=== PATIENT | female | born 1935 | race African-American/Black ===

== ENCOUNTER 2017-01-31 09:27 | Inpatient (IN) | payer OTHER, MEDICAID ==
[~2017-01-31] VITALS: Ht 165.1 cm; Wt 66.0 kg
[2017-01-31] MEDS ORDERED: DONE5TAB28 PO (10:11)
[2017-01-31] MEDS ORDERED: SODIUM CHLORIDE 0.9% 250 ML IV ONE (10:11)
[2017-01-31] MEDS ORDERED: LIOT5TAB PO (10:12)
[2017-01-31] MEDS ORDERED: ATOR10TA52 PO (10:12)
[2017-01-31] MEDS ORDERED: MEMA28CA PO (10:14)
[2017-01-31] MEDS ORDERED: LEVO50TA7 PO (10:14)
[2017-01-31] MEDS ORDERED: ALPR0.254 PO (10:14)
[2017-01-31] MEDS ORDERED: PANT40T PO (10:15)
[2017-01-31] MEDS ORDERED: LORA-154 PO (10:15)
[2017-01-31 12:06] LABS: DEFINITIVE VIEW TRANSMISSION; Hematocrit 37.5 % (36.0-46.0); Hemoglobin 12.6 g/dL (12.2-16.2); Mean Corpuscular Hemoglobin 23.4 pg (28.0-32.0); Mean Corpuscular Hgb Conc. 33.5 g/dL (32.0-36.0); Mean Corpuscular Volume 69.7 fL (80.0-100.0); Mean Platelet Volume 9.7 fL (7.4-10.4); Platelet Count (auto) 205 10^3/uL (140-450); SUSPECT VIEW TRANSMISSION; White Blood Cell 4.7 10^3/uL (4.4-10.8)
[2017-01-31 12:13] LABS: Metamyelocytes % 0; Myelocytes % 0; Promyelocytes % 0; Reactive Lymphocytes 0
[2017-01-31 12:16] LABS: Albumin 3.3 g/dL (3.4-5.0); BUN/Creatinine Ratio 20.8; Bilirubin, Total 0.2 mg/dL (0.2-1.0); Calcium 9.7 mg/dL (8.5-10.1); Magnesium 2.2 mg/dL (1.6-2.6); Total Protein 7.1 g/dL (6.4-8.2)
[2017-01-31 13:34] LABS: Hypochromia Moderate; Platelet Estimate Adequate
[2017-01-31 13:35] LABS: Platelet Clumps FEW
[2017-01-31 13:39] LABS: Urine RBC None Seen /hpf (0 - 4)
[2017-01-31 13:50] LABS: Urine Bilirubin Negative (Negative); Urine Blood Negative /uL (Negative); Urine Color Yellow (Yellow); Urine Glucose Normal (Normal); Urine Ketone Negative (Negative); Urine Nitrite Negative (Negative); Urine Squamous Epithelial Cell FEW /hpf (<5); Urine Urobilinogen Normal (Negative)
[2017-01-31] MEDS ORDERED: ALPRAZolam 0.25 MG TAB PO PRN (16:00)
[2017-01-31] MEDS ORDERED: ONDANSETRON HCL 4 MG/2 ML VIAL IV PRN (16:00)
[2017-01-31] MEDS ORDERED: HYDROcodone-ACET 5/325MG TAB PO PRN (16:00)
[2017-01-31] MEDS ORDERED: DOCUSATE SOD 100 MG CAP PO PRN (16:00)
[2017-01-31] MEDS ORDERED: TEMAZEPAM 15 MG CAP PO PRN (16:00)
[2017-01-31] MEDS ORDERED: NITROGLYCERIN 0.4 MG SL TAB SL PRN (16:00)
[2017-01-31] MEDS ORDERED: MORPHINE SULF INJ 2 MG/ML SYRINGE 1ML IV PRN ×2 (16:00)
[2017-01-31] MEDS ORDERED: ACETAMINOPHEN 325 MG TAB PO PRN (16:00)
[2017-01-31] MEDS ORDERED: cefTRIAXone 1GM/50ML D5W 50 ML IV ONE (16:15)
[2017-01-31] MEDS: FAMOTIDINE 20 MG TAB PO SCH (16:30)
[2017-01-31 18:31] VITALS: BP 136/64
[2017-01-31] MEDS ORDERED: ASPirin-EC 81 mg tab PO ONE (19:45)
[2017-01-31 20:00] VITALS: BP 142/58
[2017-01-31] MEDS: ATORVASTATIN 20 MG TAB PO SCH (21:12)
[2017-01-31] MEDS: DONEPEZIL HYDROCHLORIDE 5 MG TAB PO SCH (21:12)
[2017-01-31 22:00] VITALS: BP 142/58
[2017-01-31] MEDS: SODIUM CHLOR 0.9% PF (SALINE LOCK) 10ML VIAL IV SCH (22:00)
[2017-02-01 05:00] VITALS: BP 136/84
[2017-02-01 06:07] LABS: Basophils # (auto) 0 uL; Basophils % (auto) 0.6 % (0.0-2.0); DEFINITIVE VIEW TRANSMISSION; Eosinophils # (auto) 0 uL; Eosinophils % (auto) 0.7 % (0.0-7.0); Hemoglobin 12.3 g/dL (12.2-16.2); Lymphocytes # (auto) 1.1 uL; Lymphocytes % (auto) 31.1 % (10.0-50.0); Mean Corpuscular Hemoglobin 24.3 pg (28.0-32.0); Mean Corpuscular Hgb Conc. 33.2 g/dL (32.0-36.0); Mean Corpuscular Volume 73.1 fL (80.0-100.0); Mean Platelet Volume 9.7 fL (7.4-10.4); Monocytes # (auto) 0.6 uL; Monocytes % (auto) 16.1 % (0.0-12.0); Neutrophils # (auto) 1.9 uL; Neutrophils % (auto) 51.5 % (37.0-80.0); Platelet Count (auto) 206 10^3/uL (140-450); Red Cell Distribution Width 16.5 % (11.6-16.0); White Blood Cell 3.7 10^3/uL (4.4-10.8)
[2017-02-01 06:16] LABS: Albumin 3.1 g/dL (3.4-5.0); BUN/Creatinine Ratio 20.8; Calcium 8.9 mg/dL (8.5-10.1); Potassium 3.8 mmol/L (3.5-5.1)
[2017-02-01] MEDS: LEVOTHYROXINE SODIUM 50 MCG TAB PO SCH (06:16)
[2017-02-01] MEDS: LIOTHYRONINE 5 MCG PO SCH (06:17)
[2017-02-01] MEDS: SODIUM CHLOR 0.9% PF (SALINE LOCK) 10ML VIAL IV SCH ×3 (06:17→21:06)
[2017-02-01 06:20] LABS: Bilirubin, Total 0.4 mg/dL (0.2-1.0); Total Protein 6.5 g/dL (6.4-8.2)
[2017-02-01 08:00] VITALS: BP 136/84
[2017-02-01] MEDS: cefTRIAXone 1GM/50ML D5W 50 ML IV SCH (08:22)
[2017-02-01] MEDS: BOOST PLUS 8 ounce PO SCH ×3 (08:23→17:09)
[2017-02-01 09:00] VITALS: BP 140/68
[2017-02-01] MEDS: MEMANTINE HCL 5 MG TAB PO SCH (09:32)
[2017-02-01] MEDS: FAMOTIDINE 20 MG TAB PO SCH (09:32)
[2017-02-01] MEDS: PANTOPRAZOLE 40 MG TAB PO SCH (09:32)
[2017-02-01] MEDS: ASPirin-EC 81 mg tab PO SCH (09:32)
[2017-02-01] MEDS ORDERED: ENOXAPARIN SOD 30 MG/0.3 ML SYRINGE SC SCH (10:00)
[2017-02-01] MEDS ORDERED: MULTIPLE VITAMIN TAB PO SCH (10:00)
[2017-02-01] MEDS ORDERED: LORATADINE 10 MG TAB PO SCH (10:00)
[2017-02-01 13:00] VITALS: BP 126/55
[2017-02-01] MEDS: THIAMINE INJ 100 MG, MULTIPLE VITAMIN 10 ML, FOLIC ACID 1 MG, MAGNESIUM SULF SDV 50% 8 ... IV SCH ×5 (14:57)
[2017-02-01 17:00] VITALS: BP 136/64
[2017-02-01] MEDS: DONEPEZIL HYDROCHLORIDE 5 MG TAB PO SCH (21:06)
[2017-02-01] MEDS: ATORVASTATIN 20 MG TAB PO SCH (21:06)
[2017-02-01 22:00] VITALS: BP 117/92
[2017-02-02] VITALS (8 sets, daily range): BP systolic 102–131; BP diastolic 53–65
[2017-02-02] MEDS: SODIUM CHLOR 0.9% PF (SALINE LOCK) 10ML VIAL IV SCH ×3 (06:01→21:56)
[2017-02-02] MEDS: LIOTHYRONINE 5 MCG PO SCH (06:22)
[2017-02-02] MEDS: LEVOTHYROXINE SODIUM 50 MCG TAB PO SCH (06:24)
[2017-02-02] MEDS: BOOST PLUS 8 ounce PO SCH ×3 (07:11→17:37)
[2017-02-02] MEDS: cefTRIAXone 1GM/50ML D5W 50 ML IV SCH (08:20)
[2017-02-02] MEDS: PANTOPRAZOLE 40 MG TAB PO SCH (09:36)
[2017-02-02] MEDS: MEMANTINE HCL 5 MG TAB PO SCH (09:36)
[2017-02-02] MEDS: ENOXAPARIN SOD 40 MG/0.4 ML SYRINGE SC SCH (09:36)
[2017-02-02] MEDS: ASPirin-EC 81 mg tab PO SCH (09:36)
[2017-02-02 10:43] LABS: Temperature: 23.5 C (20.0-25.0)
[2017-02-02] MEDS: THIAMINE INJ 100 MG, MULTIPLE VITAMIN 10 ML, FOLIC ACID 1 MG, MAGNESIUM SULF SDV 50% 8 ... IV SCH ×5 (11:36)
[2017-02-02] MEDS ORDERED: THIAMINE INJ 100 MG, MULTIPLE VITAMIN 10 ML, FOLIC ACID 1 MG, MAGNESIUM SULF SDV 50% 8 ... IV SCH ×5 (15:00)
[2017-02-02] MEDS: DONEPEZIL HYDROCHLORIDE 5 MG TAB PO SCH (21:56)
[2017-02-02] MEDS: ATORVASTATIN 20 MG TAB PO SCH (21:56)
[2017-02-03 05:22] VITALS: BP 127/70
[2017-02-03] MEDS: SODIUM CHLOR 0.9% PF (SALINE LOCK) 10ML VIAL IV SCH ×3 (06:13→22:05)
[2017-02-03] MEDS: LEVOTHYROXINE SODIUM 50 MCG TAB PO SCH (06:45)
[2017-02-03] MEDS: BOOST PLUS 8 ounce PO SCH ×3 (08:00→18:31)
[2017-02-03 09:00] VITALS: BP 110/73
[2017-02-03] MEDS: ENOXAPARIN SOD 40 MG/0.4 ML SYRINGE SC SCH (09:27)
[2017-02-03] MEDS: ASPirin-EC 81 mg tab PO SCH (09:27)
[2017-02-03] MEDS: MEMANTINE HCL 5 MG TAB PO SCH (09:27)
[2017-02-03] MEDS: PANTOPRAZOLE 40 MG TAB PO SCH (10:00)
[2017-02-03] MEDS: THIAMINE INJ 100 MG, MULTIPLE VITAMIN 10 ML, FOLIC ACID 1 MG, MAGNESIUM SULF SDV 50% 8 ... IV SCH ×5 (12:00)
[2017-02-03 13:00] VITALS: BP 107/68
[2017-02-03 17:00] VITALS: BP 120/63
[2017-02-03 22:00] VITALS: BP 133/69
[2017-02-03] MEDS: ATORVASTATIN 20 MG TAB PO SCH (22:05)
[2017-02-03] MEDS: DONEPEZIL HYDROCHLORIDE 5 MG TAB PO SCH (22:06)
[2017-02-04] MEDS: SODIUM CHLOR 0.9% PF (SALINE LOCK) 10ML VIAL IV SCH ×2 (05:44→14:00)
[2017-02-04 06:00] VITALS: BP 133/72
[2017-02-04] MEDS: LEVOTHYROXINE SODIUM 50 MCG TAB PO SCH (06:09)
[2017-02-04] MEDS: BOOST PLUS 8 ounce PO SCH ×2 (08:00→12:00)
[2017-02-04 09:00] VITALS: BP 140/91
[2017-02-04] MEDS: ASPirin-EC 81 mg tab PO SCH (11:20)
[2017-02-04] MEDS: PANTOPRAZOLE 40 MG TAB PO SCH (11:20)
[2017-02-04] MEDS: ENOXAPARIN SOD 40 MG/0.4 ML SYRINGE SC SCH (11:20)
[2017-02-04] MEDS: MEMANTINE HCL 5 MG TAB PO SCH (11:20)
[2017-02-04] MEDS: THIAMINE INJ 100 MG, MULTIPLE VITAMIN 10 ML, FOLIC ACID 1 MG, MAGNESIUM SULF SDV 50% 8 ... IV SCH ×5 (12:00)
[2017-02-04 13:00] VITALS: BP 107/65
== END 2017-02-04 16:10 | DRG 56 ==
LOC: ER 09:27 → EDBD 09:27 → TELE 09:28 → TELE-EAST 18:48 → EAST 02-03 14:47
PROVIDERS: ADMIT Internal Medicine; ATTEND Internal Medicine Geriatric Medicine
DX: G30.1 Alzheimer's disease with late onset (principal); G93.41 Metabolic encephalopathy; E44.1 Mild protein-calorie malnutrition; F02.80 Dementia in other diseases classified elsewhere, unspecified severity, without behavioral disturbance, psychotic disturbance, mood disturbance, and anxiety; E03.9 Hypothyroidism, unspecified; E61.1 Iron deficiency; E78.5 Hyperlipidemia, unspecified; N18.2 Chronic kidney disease, stage 2 (mild); K21.9 Gastro-esophageal reflux disease without esophagitis; R26.9 Unspecified abnormalities of gait and mobility; F29 Unspecified psychosis not due to a substance or known physiological condition; Z79.899 Other long term (current) drug therapy
CPT/HCPCS: 36415; 70450; 70551; 71010; 80053; 81001; 82140; 82607; 82746; 83540; 83735; 84443; 85007; 85025; 85027; 87081; 87086; 92610; 93005; 93306; 93886; 95819; 96361; 96365; 97001; 97116; 97530; J0696